=== PATIENT | male | born 1995 | race Caucasian/White ===

== ENCOUNTER 2025-03-13 20:49 | Emergency (ER) | payer OTHER, SELFPAY ==
[2025-03-13 20:53] VITALS: BP 129/76
--- NOTE | 2025-03-13 21:55 | ED.GENMED ---
History of Present Illness
<Frank Mueller MD, Resident - Last Filed: 03/13/25 23:51>
General
Chief Complaint: Back Pain
Source: patient
Exam Limitations: none
Time Seen by Provider: 03/13/25 21:37
History of Present Illness
History of Present Illness:
This is a 29-year-old male with no known past medical history, no surgical history, presenting in the emergency department with complaints of low back pain. 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 The back pain started 2 days ago
inciting events. The pain was getting worse and aggravates with movement. Rates the pain as 7/10. Gets slightly better with laying. Reports intermittent pain behind both thighs. Denies any fevers or chills, denies any recent sickness, denies
any recent sick contacts.
Past History
<Frank Mueller MD, Resident - Last Filed: 03/13/25 23:51>
Past History
ED Past Medical History: None
ED Past Surgical History: None
Patient has exhibited threatening behavior?: No
Social History
Tobacco: Smoker (Half pack per day)
Alcohol: None
Drug: None
Personal:
Living: with family
Family History
Family History: Other (Noncontributory)
Review of Systems
<Frank Mueller MD, Resident - Last Filed: 03/13/25 23:51>
Review of Systems
Allergies reviewed?: Yes
Phy Exam
<Frank Mueller MD, Resident - Last Filed: 03/13/25 23:51>
General Physical Exam
General Presentation: mild distress
General age: appears stated age
General Skin: warm
General Habitus: normal
Cardiovascular Exam
Cardiovascular Exam: regular rate/rhythm and no murmur
Pulmonary Exam
Pulmonary Exam: lungs clear, no crackles and no cough
Gastrointestinal Exam
Gastrointestinal Exam: normal bowel sounds, non tender, soft and no cva tenderness
Musculoskeletal Exam
Musculoskeletal Exam: back pain and neuro vasc intact
Course
<Frank Mueller MD, Resident - Last Filed: 03/13/25 23:51>
Orders/Labs/Results
Orders:
Orders
03/13/25 21:55
Ibuprofen [Motrin] 600 mg PO NOW STA
Prednisone [Deltasone] 20 mg PO NOW STA
CR Lumbar Spine 2 Or 3 Views Urgent
Comment:
Reason For Exam: back pain
Vital Signs
Initial and Last Documented VS:
Initial Vital Signs
Temp Pulse Resp BP Pulse Ox
98.0 F 83 20 129/76 96
03/13/25 20:53 03/13/25 20:53 03/13/25 20:53 03/13/25 20:53 03/13/25 20:53
Last Documented Vital Signs
Temp Pulse Resp BP Pulse Ox
98.0 F 83 20 129/76 96
03/13/25 20:53 03/13/25 20:53 03/13/25 20:53 03/13/25 20:53 03/13/25 21:55
<Jamil Urban, DO - Last Filed: 03/13/25 22:23>
Orders/Labs/Results
Orders:
Orders
03/13/25 21:55
Ibuprofen [Motrin] 600 mg PO NOW STA
Prednisone [Deltasone] 20 mg PO NOW STA
CR Lumbar Spine 2 Or 3 Views Urgent
Comment:
Reason For Exam: back pain
Vital Signs
Initial and Last Documented VS:
Initial Vital Signs
Temp Pulse Resp BP Pulse Ox
98.0 F 83 20 129/76 96
03/13/25 20:53 03/13/25 20:53 03/13/25 20:53 03/13/25 20:53 03/13/25 20:53
Last Documented Vital Signs
Temp Pulse Resp BP Pulse Ox
98.0 F 83 20 129/76 96
03/13/25 20:53 03/13/25 20:53 03/13/25 20:53 03/13/25 20:53 03/13/25 21:55
<Frank Mueller MD, Resident - Last Filed: 03/13/25 23:51>
MDM/Problems Addressed
Differential Diagnosis Includes:
Strain/sprain vs disc hernia vs less likely degeneration vs unlikely infectious
MDM/Problems Addressed:
Patient's low back pain complaint seems more consistent with muscular on physical exam. Will get lumbar x-ray
1 dose of Motrin 600 mg
1 dose of prednisone 20 mg
If the x-ray comes back negative we will discharge the patient with Medrol Dosepak and Motrin 600 mg as needed. Potentially physical therapy will be beneficial.
Update: Patient feeling much better after the medications.
X-ray showed Slight straightening of the lumbar spine with likely mild degenerative disc disease of L5-S1.
Shared decision was made with the patient for discharge home. A short prescription of cyclobenzaprine, Motrin and Medrol Dosepak were sent to the pharmacy. Patient was informed that he may need physical therapy or a low back MRI of the symptoms
does not improve. He was advised to follow-up with family doctor. He cannot recall the name of the family doctor at this time.
Low back pain precaution reviewed. Return precaution reviewed with the patient. Patient voices understanding agree with the plan
<Frank Mueller MD, Resident - Last Filed: 03/13/25 23:51>
*Pulse Oximetry
SaO2: 96
Oxygen Mode of Delivery: Room air
Patient hypoxic: no
*Critical Care Note
Total Time (30-74mins, 75-104mins- exclusive of procedures): Not Applicable
ED Attending Note
<Frank Mueller MD, Resident - Last Filed: 03/13/25 23:51>
-
Portions of this chart may have been created with voice recognition software.� Occasional wrong word or��sound alike� substitutions may have occurred due to the inherent limitations of voice recognition software.
<Jamil Urban, - Last Filed: 03/13/25 22:23>
ED Attending Note
Patient seen and examined by attending physician: Yes
I performed a history and physical exam of patient and discussed management with resident, I reviewed resident's note and agree with documented findings and plan of care.: Yes
ED Attending Note:
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
Moving all extremities afebrile, screening x-ray analgesics short course of steroids
Discharge Plan
Departure
Patient Disposition: Home (Routine Discharge)
Date of Disposition: 03/13/25
Time of Disposition: 23:42
Patient with high blood pressure during this ER visit?: Yes
Condition: Good
Discharge Problem:
Back pain
Instructions: Low Back Pain (DC), BLOOD PRESSURE
Prescriptions:
New
cyclobenzaprine 5 mg tablet
5 mg PO HS PRN (Reason: muscle spasm) Qty: 7 0RF
ibuprofen 600 mg tablet
600 mg PO Q8H PRN (Reason: Pain) Qty: 14 0RF
methylprednisolone [Medrol (Pankaj)] 4 mg tablets,dose pack
See Rx Instructions .ROUTE .COMPLEX Qty: 21 0RF
Rx Instructions:
for 6 days
Referrals:
NONE,* [Family Provider, Internal Medicine]
Derrick Draper MD [Active, Orthopedics]
Activity Restrictions/Additional Instructions:
You were seen at [facility] emergency department with concerns of back pain. Periodic vitals remained stable during your stay.
X-ray of your low back showed slight straightening of the lumbar spine with likely mild degenerative disc disease of L5-S1.
Physical exam did not reveal any red flags.
You were given 1 dose of 600 mg Motrin and 20 mg prednisone in the ER. A prescription of cyclobenzaprine 5 mg tablet sent to your pharmacy, you can use that as needed for spasm at bedtime. Prescription for ibuprofen 600 mg was also sent that she
can use as needed every 8 hours for pain. A prescription of Medrol Dosepak was sent please read the instructions on the Dosepak. Please follow-up with your family doctor outpatient. You might need physical therapy if the pain does not improve.
If your symptoms worsen or you might need MRI of your lower back At this time there is no indication for further imaging. Please return to the emergency department if you develop any worsening of current symptoms or any worrisome symptoms.
Orthopedic information attached with the picture if she would like to see orthopedic outpatient.
Interventions
Interventions:
*General Assessment Last Done: 03/13/25 20:53
Discharge Date and Time
Print Language: Cameroonian
[2025-03-13] MEDS: DELTASONE 20 MG PO (22:12)
[2025-03-13] MEDS: MOTRIN 600 MG PO (22:12)
[2025-03-14 00:06] VITALS: BP 132/86
== END 2025-03-14 00:12 | disposition home or self-care (01) ==
LOC: EMR 20:49
PROVIDERS: EMERGENCY PHYSICIAN Emergency Medicine
DX: M54.50 Low back pain, unspecified (principal); F17.210 Nicotine dependence, cigarettes, uncomplicated
CPT/HCPCS: 99283; 72100